=== PATIENT | female | born 1975 | race Caucasian/White ===

== ENCOUNTER → 2022-07-13 16:51 | Outpatient (BNVA) | payer OTHER, SELFPAY | PROVIDERS: Family Provider Nurse Practitioner; PCP Nurse Practitioner; Visit Provider Nurse Practitioner Family | DX: J45.909 Unspecified asthma, uncomplicated (principal); Z68.43 Body mass index [BMI] 50.0-59.9, adult; Z13.6 Encounter for screening for cardiovascular disorders | CPT/HCPCS: 80053; 80061; 84443; 85025 ==